=== PATIENT | male | born 1965 | race Caucasian/White ===

== ENCOUNTER 2018-01-03 14:17 | Emergency (ER) | payer OTHER ==
--- NOTE | 2018-01-03 15:45 | EDPHY ---
H & P Time Seen by Provider: 01/03/18 15:37 HPI/ROS: Chief complaint. Fever, abdominal pain HPI. Patient 52-year-old male presents emergency department with left lower quadrant abdominal pain for 6 days. Describes as crampy without radiation. Nausea without vomiting or diarrhea. Today developed some more dripping urination and pain in the groin adjacent to the left side of the scrotum. He feels he needs to have a bowel movement but is unable to. Possible fever. He had similar symptoms 4-5 years ago but saw his physician after the symptoms had resolved in etiology of his pain was not clear. No abdominal surgery. No chest discomfort or trouble breathing ROS 10 systems were reviewed and negative with the exception of the elements mentioned in the history of present illness Past Medical/Surgical History: Anxiety and scoliosis Social History: , nonsmoker, no alcohol Smoking Status: Never smoked Physical Exam: General Appearance: Alert well-developed male mild distress. Vital signs are stable. Afebrile Eyes: Pupils equal and round no pallor or injection. ENT, Mouth: Mucous membranes are moist. Respiratory: There are no retractions, lungs are clear to auscultation. Cardiovascular: Regular rate and rhythm. Gastrointestinal: Abdomen is soft with tenderness in left lower quadrant. Normal bowel sounds. No masses. Inspection of penis and testicles appears normal. Neurological: Awake and alert, sensory and motor exams grossly normal. Skin: Warm and dry, no rashes. Musculoskeletal: Neck is supple nontender. Extremities symmetrical, full range of motion. Psychiatric: Patient is oriented X 3, there is no agitation. Constitutional: Initial Vital Signs Temperature (C) 36.7 C 01/03/18 14:18 Heart Rate 83 01/03/18 14:18 Respiratory Rate 16 01/03/18 14:18 Blood Pressure 138/94 H 01/03/18 14:18 O2 Sat (%) 93 01/03/18 14:18 O2 Delivery Mode Room Air Allergies/Adverse Reactions: No Known Allergies Allergy (Unverified 04/27/13 11:59) Home Medications: Medication Instructions Recorded Meclizine HCl [Antivert] 25 mg PO Q6 PRN #15 tab 04/27/13 Ondansetron Odt [Zofran Odt] 4 mg PO Q4PRN PRN #10 tab 04/27/13 Cephalexin [Keflex (*)] 500 mg PO TID #21 cap 01/03/18 Medical Decision Making - Diagnostics Imaging Results: Imaging Impressions Abdomen CT 01/03/18 15:56 Impression: 1. Possible 1 to 2 mm ureterovesical junction stone. No hydronephrosis. 2. Otherwise normal CT scan of the abdomen and pelvis. Findings and recommendations discussed with Dr. Du Keller at 5:26 PM, 2017. Final report concurs with initial preliminary interpretation. Procedures: IV normal saline IV Rocephin and Toradol ED Course/Re-evaluation: Serial evaluations patient is stable. Re-evaluation again at 6:30 p.m. After Toradol and antibiotics. Patient is stable. The patient, his , and I discussed imaging and lab results. We discussed treatment plan including criteria for return and importance of follow-up and further evaluation. They expressed understanding agreement Differential Diagnosis: I considered diverticulitis, urinary tract infection, pyelonephritis, kidney stone - Data Points Laboratory Results: Laboratory Results 01/03/18 16:16 01/03/18 16:16 01/03/18 01/03/18 01/03/18 16:16 16:16 16:09 WBC 9.97 10^3/uL H 10^3/uL (3.80-9.50) RBC 5.16 10^6/uL 10^6/uL (4.40-6.38) Hgb 18.0 g/dL H g/dL (13.7-17.5) Hct 49.8 % % (40.0-51.0) MCV 96.5 fL fL (81.5-99.8) MCH 34.9 pg H pg (27.9-34.1) MCHC 36.1 g/dL g/dL (32.4-36.7) RDW 12.1 % % (11.5-15.2) Plt Count 211 10^3/uL 10^3/uL (150-400) MPV 9.2 fL fL (8.7-11.7) Neut % (Auto) 58.9 % % (39.3-74.2) Lymph % (Auto) 29.9 % % (15.0-45.0) Bryan % (Auto) 7.3 % % (4.5-13.0) Eos % (Auto) 2.6 % % (0.6-7.6) Baso % (Auto) 0.9 % % (0.3-1.7) Nucleat RBC Rel Count 0.0 % % (0.0-0.2) Absolute Neuts (auto) 5.87 10^3/uL 10^3/uL (1.70-6.50) Absolute Lymphs (auto) 2.98 10^3/uL 10^3/uL (1.00-3.00) Absolute Monos (auto) 0.73 10^3/uL 10^3/uL (0.30-0.80) Absolute Eos (auto) 0.26 10^3/uL 10^3/uL (0.03-0.40) Absolute Basos (auto) 0.09 10^3/uL 10^3/uL (0.02-0.10) Absolute Nucleated RBC 0.00 10^3/uL 10^3/uL (0-0.01) Immature Gran % 0.4 % % (0.0-1.1) Immature Gran # 0.04 10^3/uL 10^3/uL (0.00-0.10) Sodium 140 mEq/L mEq/L (135-145) Potassium 4.1 mEq/L mEq/L (3.3-5.0) Chloride 105 mEq/L mEq/L (97-110) Carbon Dioxide 25 mEq/l mEq/l (22-31) Anion Gap 10 mEq/L mEq/L (6-14) BUN 15 mg/dL mg/dL (7-23) Creatinine 1.0 mg/dL mg/dL (0.7-1.3) Estimated GFR > 60 Glucose 82 mg/dL mg/dL (70-100) Calcium 10.1 mg/dL mg/dL (8.5-10.4) Total Bilirubin 2.0 mg/dL H mg/dL (0.1-1.4) Conjugated Bilirubin 0.1 mg/dL mg/dL (0.0-0.5) Unconjugated Bilirubin 1.9 mg/dL H mg/dL (0.0-1.1) AST 24 IU/L IU/L (17-59) ALT 22 IU/L IU/L (21-72) Alkaline Phosphatase 72 IU/L IU/L (38-126) Total Protein 7.7 g/dL g/dL (6.3-8.2) Albumin 4.8 g/dL g/dL (3.5-5.0) Urine Color KAT Urine Appearance MODERATELY TURBID Urine pH 5.0 (5.0-7.5) Ur Specific Huntley 1.020 (1.002-1.030) Urine Protein 2+ H (NEGATIVE) Urine Ketones TRACE H (NEGATIVE) Urine Blood 3+ H (NEGATIVE) Urine Nitrate NEGATIVE (NEGATIVE) Urine Bilirubin NEGATIVE (NEGATIVE) Urine Urobilinogen 2.0 EU H EU (0.2-1.0) Ur Leukocyte Esterase NEGATIVE (NEGATIVE) Urine RBC 50-182 /hpf H /hpf (0-3) Urine WBC 15-25 /hpf H /hpf (0-3) Ur Epithelial Cells TRACE /lpf /lpf (NONE-1+) Urine Bacteria TRACE /hpf H /hpf (NONE SEEN) Urine Mucus 4+ /lpf H /lpf (NONE-1+) Urine Glucose NEGATIVE (NEGATIVE) Medications Given: Discontinued Medications Sodium Chloride (Ns) 1,000 mls @ 0 mls/hr IV EDNOW ONE; Wide Open PRN Reason: Protocol Stop: 01/03/18 15:56 Last Admin: 01/03/18 16:18 Dose: 1,000 mls Ceftriaxone Sodium/Dextrose (Rocephin 1 Gm (Premix)) 50 mls @ 100 mls/hr IV EDNOW ONE PRN Reason: Protocol Stop: 01/03/18 18:05 Last Admin: 01/03/18 18:00 Dose: 50 mls Ketorolac Tromethamine (Toradol) 30 mg IVP EDNOW ONE Stop: 01/03/18 17:37 Last Admin: 01/03/18 18:02 Dose: 30 mg Departure - Departure Disposition: Home, Routine, Self-Care Clinical Impression: Kidney stone on left side Condition: Good Instructions: Kidney Stones (ED) Additional Instructions: Drink plenty of fluids and stay hydrated. Cephalexin as antibiotic Ibuprofen 600 mg every 6 hr for discomfort Return for worsening symptoms. I will give you the name of Urology for follow-up. Try to see the urologist in the next 2-3 days. Otherwise follow up with Dr. Weber in the next 2-3 days. Referrals: Patti Weber MD [Primary Care Provider] - As per Instructions Alejandro Woods MD [Medical Doctor] - 2-3 days, call for appt. Prescriptions: Cephalexin [Keflex (*)] 500 mg PO TID #21 cap
[2018-01-03] MEDS ORDERED: NS 1,000 ML IV ONE (15:55)
[2018-01-03 16:29] LABS: PLATELET COUNT 211 10^3/uL (150-400)
[2018-01-03] MEDS ORDERED: IOPAMIDOL (ISOVUE-300) 100 ML BTL ONE (16:46)
[2018-01-03] MEDS ORDERED: KETOROLAC 30 MG/1 ML SDV IVP ONE (17:36)
[2018-01-03 18:50] VITALS: BP 128/84
== END 2018-01-03 18:49 | disposition home or self-care (01) ==
DX: N20.0 Calculus of kidney (principal); E86.9 Volume depletion, unspecified
CPT/HCPCS: 96365; J0696; J1885; Q9967